=== PATIENT | female | born 1985 | race Caucasian/White ===

== ENCOUNTER 2020-12-31 03:40 | Emergency (ER) | payer MEDICAID ==
[~2020-12-31] VITALS: Ht 152.4 cm; Wt 81.6 kg
[2020-12-31 03:50] VITALS: BP_SYST 140
[2020-12-31] MEDS ORDERED: IPRATROPIUM/ALBUTEROL SULFATE 3 ML AMPUL.NEB (DUONEB) INH ONE ×2 (04:15→05:30)
[2020-12-31] MEDS ORDERED: NALOXONE HCL 0.4 MG/ML AMP (NARCAN) IVP PRN (04:45)
[2020-12-31] MEDS ORDERED: ACETAMINOPHEN/CODEINE 300 MG-30 MG TABLET PO ONE (04:45)
[2020-12-31] MEDS ORDERED: PROMETHAZINE HCL/CODEINE 6.25-10 mg/5 mL UDC PO ONE (04:45)
[2020-12-31] MEDS ORDERED: HYDR473S49 PO (05:23)
[2020-12-31] MEDS ORDERED: PRED20TA PO (05:23)
[2020-12-31] MEDS ORDERED: LORA10TA7 PO (05:23)
[2020-12-31] MEDS ORDERED: ALBMDI INH (05:23)
[2020-12-31 05:42] VITALS: BP_SYST 100
== END 2020-12-31 05:42 | disposition home or self-care (01) ==
LOC: SED 03:40
DX: J98.01 Acute bronchospasm (principal)
CPT/HCPCS: 71045; 94640; 99284